=== PATIENT | male | born 1955 | race Caucasian/White ===

== ENCOUNTER 2024-12-28 13:22 | Observation (INO) ==
--- NOTE | 2024-12-28 14:39 | Emergency Department Note ---
Impression & Plan Ambulatory dysfunction, Weakness ED Provider Note CHIEF COMPLAINT: Right hip sciatic pain HISTORY OF PRESENTING ILLNESS: Patient is a 69-year-old male who presents to the emergency department today with Dr. Concepcion. His primary complaint is low back pain and right buttocks pain. He does have a history of sciatic pain and this is similar. Per Dr. Concepcion the patient has a history of Parkinson's, hypothyroidism, brain mass or cyst. He recently developed 3-4+ pitting edema in the bilateral lower extremities. The patient's son does live with him however he is out of town on a mission trip and the patient has been unable to ambulate and care for himself. The patient is incontinent of urine and that is his typical baseline. The patient's primary language is Syrian. He denies any injury or trauma. Talking to Dr. Concepcion He denies chest pain, sob, breathing difficulties, abdominal pain, headache, fevers/chills, blood in stool or urine, any recent illness, or any recent travel. REVIEW OF SYSTEMS: See HPI for pertinent positives and pertinent negatives. ALLERGIES: Sulfa MEDICATIONS: See below PAST MEDICAL HISTORY: See below PHYSICAL EXAM: VITALS: Vitals are noted on the nurse's note and reviewed by myself. GENERAL: Non toxic, in no acute distress, non-diaphoretic. SKIN: Capillary refill <2 sec. EYES: PERRLA. EOMI. Conjunctivae without injection, sclerae without icterus. NOSE: Patent without discharge. MOUTH: Mucous membranes moist. Uvula midline. Airway patent. NECK: Supple without nuchal rigidity. HEART: Regular rate and rhythm without murmurs gallops or rubs. LUNGS: Clear to auscultation bilaterally without wheezes, rales or rhonchi. No retractions or accessory muscle use. ABDOMEN: Positive bowel sounds x 4. Normal tympanic percussion. Soft, nontender to palpation. No masses or hepatosplenomegaly. Addison sign negative. No CVA tenderness. No guarding, rigidity, or rebound tenderness. No focal RLQ or LLQ tenderness. MUSCULOSKELETAL: +3 pitting edema to the BLE NEURO: Patient was alert and oriented. No focal neurological deficits. DIFFERENTIAL DIAGNOSIS: Differential diagnosis includes cauda equina syndrome, cord compression, disc herniation, muscle spasm, lumbar strain, epidural abscess, malignancy, transverse myelitis, urinary tract infection, colitis, diverticulitis, kidney stone, among others. ED COURSE AND MEDICAL DECISION MAKING: HISTORY FROM INDEPENDENT HISTORIAN: History was provided by the patient and and Dr. Concepcion. I examined the patient for complaints of lower back pain with pain in the right buttocks. A physical exam and history were performed. Nursing notes, EMR, and medication list were personally reviewed. EKG: EKG was interpreted by myself as sinus bradycardia. INTERPRETATION OF LABS: An IV lock was placed and labs were drawn. I interpreted the labs with full lab results as below in the lab section of this note. Laboratory results pertinent to the emergent complaint are discussed in the MDM section below. The patient was advised to follow up with their PCP and/or specialist(s) for further outpatient monitoring and management of any abnormal results. There was no leukocytosis, anemia, thrombocytopenia. Electrolytes were normal and kidney function was also normal. The urinalysis was negative for leukocytes, nitrates, bacteria. INTERPRETATION OF IMAGING: Imaging studies were interpreted by myself and read by radiology as per the imaging section of this note. The patient was advised to follow up with their PCP and/or specialist(s) for further outpatient management of any non-emergent abnormal findings. The lumbar spine x-ray showed no acute abnormality. CHRONIC MEDICAL/SOCIAL CONDITIONS AFFECTING CARE: Unable to speak Hebrew, unable to care for self with history of Parkinsons. ESCALATION OF CARE CONSIDERED: I considered admission on this patient due to the weakness and ambulatory dysfunction. CONSULTATIONS: I had a meaningful discussion about this patient with Dr. Navarro who agrees with my assessment and the treatment plan. I also consulted with case management due to the patient not being able to go home to a safe environment and care for himself. We then consulted the hospitalist for admission. I spoke with Ritesh Quesada PA-C who accepts the patient for admission. SUMMARY: I evaluated the patient in the emergency department for lower lumbar pain. I spoke with Dr. Hussein who brought the patient to the emergency department with concerns of an on safe living environment without his son being home to care for him. The patient is unable to walk and care for himself. There was no leukocytosis, anemia, thrombocytopenia. Electrolytes were normal and kidney function was also normal. The urinalysis was negative for leukocytes, nitrates, bacteria. The lumbar spine x-ray showed no acute abnormality. I spoke with Ritesh Quesada PA-C who accepts the patient for admission to the hospital. The patient is to have close outpatient follow-up with a recheck of their symptoms. To return to the ER sooner for any significantly changing or worsening symptoms. The patient was educated on the treatment plan and the discharge instructions. The patient was discharged home in stable condition and verbalized understanding of all discharge instructions and treatment plan. DIAGNOSIS: Weakness, ambulatory dysfunction, Parkinson's disease TREATMENT PLAN/DISCHARGE INSTRUCTIONS: Admission to the hospitalist services. Attending Attestation: I Mino Navarro MD I have reviewed the advanced practitioner's documentation and agree with the plan of care. I accept the responsibility for the associated risk of managing the patient. I performed a substantive portion of the visit including involvement in all aspects of medical decision making. Past Med/Surg History Problem List (Updated 12/28/24 @ 22:55 by KEV De Los Santos) Weakness (Acute) Lower back pain Bilateral lower extremity edema Ambulatory dysfunction (Acute) Medical History Urinary incontinence Hypothyroidism Parkinson's disease Surgical History History of cholecystectomy Family History Other Family history non-contributory Social History Smoking Status: Former smoker Smoking End Date: "> 4 years ago"; Hx Alcohol Use: No Hx Substance Use: No Preferred Language: Syrian Communication Ability: Effective Communication Tools: IPad Personal Insurance Advisor Required: Yes and Voice Beliefs That Will Affect Care: None Current Living Situation: Family and Other Current Living Situation Comment: Lives with his son but is currently living alone d/t being away for work Other Information That Helps Us Care for You: No Feels Safe at Home: Yes Safety Concerns: Feels Safe At This Time Assistive Devices: Walker Assistive Devices Comment: states he uses a walker but hasn't used it recently d/t it being broken Allergies Allergies Allergy/AdvReac Type Severity Reaction Status Date / Time Sulfa (Sulfonamide Allergy Unknown CAN'T Verified 12/28/24 17:04 Antibiotics) REMEMBER Home Meds Home Medications Medication Instructions Recorded Confirmed No Known Home Medications 12/28/24 12/28/24 Results & Data (ED) Vital Signs Vital Signs - 24 hr 12/28/24 15:00 12/28/24 16:00 12/28/24 16:15 Pulse Rate 77 Pulse Rate [Apical] 70 60 Pulse Rhythm [Apical] Regular Regular Pulse Strength [Apical] Normal Normal Respiratory Rate 18 16 Respiratory Effort / Characteristics Non-Labored Spontaneous Non-Labored Spontaneous Respiratory Depth Normal Normal Respiratory Pattern Regular Regular Blood Pressure [Left Arm] 163/94 H 135/83 Blood Pressure Mean [Left Arm] 117 100 Blood Pressure Position [Left Arm] Semi-fowlers Semi-fowlers Pulse Oximetry 94 100 Oxygen Delivery Method Room Air Room Air 12/28/24 18:16 Pulse Rate Pulse Rate [Apical] 59 L Pulse Rhythm [Apical] Regular Pulse Strength [Apical] Normal Respiratory Rate 18 Respiratory Effort / Characteristics Non-Labored Spontaneous Respiratory Depth Normal Respiratory Pattern Regular Blood Pressure [Left Arm] 150/89 H Blood Pressure Mean [Left Arm] 109 Blood Pressure Position [Left Arm] Semi-fowlers Pulse Oximetry 98 Oxygen Delivery Method Room Air Laboratory Data 12/29/24 06:36 12/29/24 06:36 Lab Results 12/28/24 12/28/24 Range/Units 14:49 16:25 WBC 6.91 (4.8-10.8) K/ul RBC 4.42 L (4.70-6.10) M/uL Hgb 13.2 L (14.0-18.0) g/dl Hct 38.9 L (42.0-52.0) % MCV 88.0 (80.0-100.0) fL MCH 29.9 (25.0-34.0) pg MCHC 33.9 (32.0-36.0) g/dL RDW Std Deviation 39.8 (36.4-46.3) fL RDW Coeff of Bernabe 12.5 (11.5-14.5) % Plt Count 177 (130-400) K/uL MPV 10.4 (9.4-12.4) fL Immature Gran % (Auto) 0.4 % Neut % (Auto) 74.3 % Lymph % (Auto) 16.1 % Yancey % (Auto) 7.8 % Eos % (Auto) 1.0 % Baso % (Auto) 0.4 % Neut # (Auto) 5.13 (1.40-6.50) K/uL Lymph # (Auto) 1.11 L (1.20-3.40) K/uL Yancey # (Auto) 0.54 (0.11-0.59) K/uL Eos # (Auto) 0.07 (0.00-0.50) K/uL Baso # (Auto) 0.03 (0.00-0.20) K/uL Immature Gran # (Auto) 0.03 (0.01-0.20) K/uL Sodium 137 (136-145) mmol/L Potassium 3.9 (3.5-5.1) mmol/L Chloride 102 (98-107) mmol/L Carbon Dioxide 29 (21-32) mmol/L Anion Gap 6 (3-11) BUN 18 (6-23) mg/dl Creatinine 0.65 (0.6-1.4) mg/dl Est Cr Clr Drug Dosing Not Reportable eGFR 100.74 BUN/Creatinine Ratio 27.7 H (10-20) Glucose 78 (70-99(Fasting)) mg/dl Calcium 9.6 (8.6-10.3) mg/dl Total Bilirubin 1.0 (0.2-1.0) mg/dl AST 14 (13-39) U/L ALT 15 (7-52) U/L Alkaline Phosphatase 108 H (34-104) U/L Troponin I High Sens 3.0 (0-20) pg/ml Total Protein 7.2 (6.0-8.3) gm/dl Albumin 4.9 (3.4-5.0) gm/dl Globulin 2.3 L (2.5-4.0) gm/dl Albumin/Globulin Ratio 2.1 H (0.9-2) Urine Color Yellow Urine Appearance Clear (Clear) Urine pH 7.0 (4.5-7.5) Ur Specific Clayton 1.006 (1.000-1.030) Urine Protein Negative (Negative) Urine Glucose (UA) Negative (Negative) Urine Ketones Negative (Negative) Urine Blood Negative (Negative) Urine Nitrite Negative (Negative) Urine Bilirubin Negative (Negative) Urine Urobilinogen Negative (Negative) Ur Leukocyte Esterase Negative (Negative) Urine Comment Administered Medications Carbidopa/Levodopa (Carbidopa/Levodopa 25/100mg Tab) 1 tab PO TID [facility] Stop: 01/27/25 20:59 Last Admin: 12/29/24 08:46 Dose: 1 tab Documented By: Admin: 12/28/24 21:34 Dose: 1 tab Documented By: ASHISH Enoxaparin Sodium (Enoxaparin Inj 40 Mg/0.4 Ml Syr) 40 mg SQ Q24H [facility] Stop: 01/27/25 21:29 Last Admin: 12/28/24 22:29 Dose: 40 mg Documented By: TRACY Levothyroxine Sodium (Levothyroxine Sodium 100 Mcg Tablet) 100 mcg PO DAILYBB [facility] Stop: 01/28/25 06:29 Last Admin: 12/29/24 06:00 Dose: 100 mcg Documented By: TRACY Miscellaneous (Remove Lidoderm Patch) 1 each N/A DAILY@2100 [facility] Stop: 01/27/25 20:59 Last Admin: 12/28/24 22:14 Dose: 1 each Documented By: TRACY Tramadol HCl (Tramadol Hcl 50 Mg Tablet) 50 mg PO BID PRN PRN Reason: Pain 8-10 Stop: 01/27/25 20:32 Last Admin: 12/29/24 08:46 Dose: 50 mg Documented By: SHANTELL Discontinued Medications Acetaminophen (Acetaminophen 325 Mg Tab) 650 mg PO NOW STA Stop: 12/28/24 18:33 Last Admin: 12/28/24 18:43 Dose: 650 mg Documented By: Ioversol (Optiray 320 100ml) 90 ml IV ONCE ONE Stop: 12/28/24 19:20 Last Admin: 12/28/24 19:19 Dose: 90 ml Documented By: PJ Lidocaine (Lidocaine 5% 1 Patch) 1 patch TD NOW STA Stop: 12/28/24 18:33 Last Admin: 12/28/24 18:43 Dose: 1 patch Documented By: Imaging Data Radiologist's Impression: Lumbar Spine X-Ray 12/28/24 14:18 INDICATION: Back pain. TECHNIQUE: 3 views of the lumbar spine. COMPARISON: No relevant priors. FINDINGS: No acute fracture or dislocation. No lytic or blastic bony lesions seen. Mild multilevel disc space narrowing and facet arthropathy most pronounced at lower lumbar levels. Soft tissues appear unremarkable. IMPRESSION: No acute osseous abnormality evident. Mild multilevel disc space narrowing and facet arthropathy most pronounced at lower lumbar levels. Electronically signed by Josué Schwartz 12-28-2024 4:43 PM Chest X-Ray 12/28/24 18:09 EXAM: Portable AP chest radiograph TECHNIQUE: AP portable radiograph of the chest was obtained. INDICATION: Shortness of breath Comparison: None FINDINGS: LINES and TUBES: None CARDIOVASCULAR: Cardiac silhouette is enlarged in size. LUNGS/PLEURA: Mild pulmonary vascular congestion. No focal consolidation identified. No significant pleural fluid. No discernible pneumothorax. OSSEOUS/OTHER: No displaced acute osseous process identified. IMPRESSION: Mild congestive changes of the cardiovascular system. Electronically signed by Jah Craven 12-28-2024 8:33 PM Abdomen/Pelvis CT 12/28/24 18:28 CT ABDOMEN and PELVIS WITH and WITHOUT INTRAVENOUS CONTRAST HISTORY: Abdominal pain TECHNIQUE: CT abdomen and pelvis without contrast. IV CONTRAST: 100 mL of Omnipaque 300 ENTERIC CONTRAST: None. COMPARISON: None FINDINGS: LOWER CHEST: Mild cardiac lodgment. Mild coronary calcifications. LIVER: No focal lesion identified. Hepatomegaly GALLBLADDER/BILIARY: Surgically absent gallbladder. No abnormal biliary dilatation. SPLEEN: Splenomegaly. PANCREAS: Unremarkable. ADRENALS: Unremarkable. KIDNEYS: Cortical cysts. No stones or hydronephrosis identified. PERITONEUM/RETROPERITONEUM. No lymphadenopathy by size criteria. No aortic aneurysm. GASTROINTESTINAL: No obstruction. Mild gastric wall thickening. Multiple loops of small bowel also demonstrate mild wall thickening REPRODUCTIVE: Enlarged prostate impinging upon the urinary bladder outlet. URINARY BLADDER: Mildly distended with mild wall thickening. ABDOMINAL WALL: No appreciable hernia defect. BONES: No acute findings. Multilevel degenerative changes of the lumbar spine with neuroforaminal stenoses at multiple levels. Grade 1 anterolisthesis of L5 on S1 with associated chronic pars defects. IMPRESSION: No nephrolithiasis or hydronephrosis detected. Suggestion of mild gastroenteritis. Advanced multilevel degenerative changes of the lumbar spine. Electronically signed by Jah Craven 12-28-2024 8:30 PM Discharge Plan Visit Data Chief Complaint: Back Injury/Pain Stated Complaint: BACK PAIN/TRAVELS INTO RT BUTTOX ED Provider: Mino Navarro ED Midlevel Provider: Minerva Eldridge Discharge Problem: Ambulatory dysfunction, Weakness Patient Disposition: Admitted As Inpatient Condition: Good Discharge Instructions Interventions: ED Discharge Assessment Last Done: 12/28/24 20:33
[2024-12-28 15:09] LABS: Basophils # (auto) 0.03 K/uL (0.00-0.20); Basophils % (auto) 0.4 %; Eosinophils # (auto) 0.07 K/uL (0.00-0.50); Hematocrit (blood only) 38.9 % (42.0-52.0); Hemoglobin 13.2 g/dl (14.0-18.0); Immature Granulocytes # (auto) 0.03 K/uL (0.01-0.20); Immature Granulocytes % (auto) 0.4 %; Lymphocytes # (auto) 1.11 K/uL (1.20-3.40); Lymphocytes % (auto) 16.1 %; Mean Corpuscular Hemoglobin 29.9 pg (25.0-34.0); Mean Corpuscular Hgb Conc 33.9 g/dL (32.0-36.0); Mean Platelet Volume 10.4 fL (9.4-12.4); Monocytes # (auto) 0.54 K/uL (0.11-0.59); Monocytes % (auto) 7.8 %; Neutrophils # (auto) 5.13 K/uL (1.40-6.50); Neutrophils % (auto) 74.3 %; Platelet Count 177 K/uL (130-400); RDW Coefficient of Variation 12.5 % (11.5-14.5); RDW Standard Deviation 39.8 fL (36.4-46.3); Red Blood Count 4.42 M/uL (4.70-6.10); White Blood Count 6.91 K/ul (4.8-10.8)
[2024-12-28 15:23] LABS: Alanine Aminotransferase 15 U/L (7-52); Albumin Globulin Ratio 2.1 (0.9-2); Albumin Level 4.9 gm/dl (3.4-5.0); Alkaline Phosphatase 108 U/L (34-104); Anion Gap 6 (3-11); Aspartate Aminotransferase 14 U/L (13-39); BUN Creatinine Ratio 27.7 (10-20); Blood Urea Nitrogen 18 mg/dl (6-23); Calcium 9.6 mg/dl (8.6-10.3); Carbon Dioxide 29 mmol/L (21-32); Chloride 102 mmol/L (98-107); Globulin 2.3 gm/dl (2.5-4.0); Glucose 78 mg/dl (70-99(Fasting)); Potassium 3.9 mmol/L (3.5-5.1); Sodium 137 mmol/L (136-145); Total Protein 7.2 gm/dl (6.0-8.3)
--- NOTE | 2024-12-28 15:53 | Electrocardiogram Report ---
Test Reason : Blood Pressure : */* mmHG Vent. Rate : 59 BPM Atrial Rate : 59 BPM P-R Int : 164 ms QRS Dur : 88 ms QT Int : 432 ms P-R-T Axes : 44 -9 36 degrees QTcB Int : 427 ms Sinus bradycardia Otherwise normal ECG No previous ECGs available Confirmed by Lucas Ching ([id number]) on 12/28/2024 3:52:39 PM Referred By: REFERRED SELF Confirmed By: Lucas Ching
[2024-12-28 16:39] LABS: Appearance Urine Clear (Clear); Bilirubin Urine Negative (Negative); Blood Urine Negative (Negative); Color Urine Yellow; Glucose Urine UA Negative (Negative); Ketones Urine Negative (Negative); Leukocyte Esterase Urine Negative (Negative); Nitrite Urine Negative (Negative); Protein Urine Negative (Negative); Specific Gravity Urine 1.006 (1.000-1.030); Urobilinogen Urine Negative (Negative)
--- NOTE | 2024-12-28 16:43 | XRay Report ---
INDICATION: Back pain. TECHNIQUE: 3 views of the lumbar spine. COMPARISON: No relevant priors. FINDINGS: No acute fracture or dislocation. No lytic or blastic bony lesions seen. Mild multilevel disc space narrowing and facet arthropathy most pronounced at lower lumbar levels. Soft tissues appear unremarkable. IMPRESSION: No acute osseous abnormality evident. Mild multilevel disc space narrowing and facet arthropathy most pronounced at lower lumbar levels. Electronically signed by Josué Schwartz 12-28-2024 4:43 PM
--- NOTE | 2024-12-28 17:18 | History & Physical Report ---
Date of Service December 28, 2024 Assessment & Plan (1) Ambulatory dysfunction: (2) Bilateral lower extremity edema: (3) Parkinson's disease: (4) Hypothyroidism: (5) Urinary incontinence: (6) Lower back pain: Plan This patient is a 69-year-old Venezuelan-speaking gentleman who presented on 12/28 for intractable lower back pain leading to ambulatory dysfunction. Patient came in at the [facility] (Dr. Concepcion). #Ambulatory dysfunction | lower right back/flank pain No fever at home; no leukocytosis Lumbar spine x-ray no acute osseous abnormality; mild multilevel disc space narrowing Leading DDx includes right-sided sciatica, arthritis, spondylolisthesis (among other etiologies) PT/OT evaluations appreciated Fall precautions Chek CT Abd/pel and consider MRI lumbar spine # Increased urinary frequency | urinary incontinence Urinary incontinence at baseline, with an acute worsening over 3 to 4 days UA negative for infection; no proteinuria A/P CT with and without contrast ordered to rule out kidney stone, lymphedema, occult fx, mass to explain new onset RLE edema, etc. Lidocaine patch application daily Acetaminophen as needed for pain Tramadol as needed for severe breakthrough pain #B/L LE edema LE edema Patient denies prior history of heart failure, UA without protein Echocardiogram ordered, pending CXR ordered, pending BNP ordered, pending Strict I&O monitoring Daily weights Heart healthy, low-sodium diet for now Lasix pending echocardiogram #Parkinson's Continue Sinemet BID #Hypothyroidism Continue levothyroxine Check TSH Disposition: Obs - Admit to Med/Tele VTE PPx: Lovenox 40 mg SQ q24h History of Present Illness Chief Complaint: Back injury/pain Primary Care Provider: NO PCP Mr. Jermain Ernst is a Venezuelan-speaking 69-year-old gentleman with PMH of Parkinson's, hypothyroidism, and brain mass. He presented on 12/28 for ambulatory dysfunction secondary to lower back pain. Patient believes it is secondary to sciatica. Patient reports that the pain is a 7/10, and is mainly "on top of the coccyx" as well as the right lower back wrapping around the flank. He describes the pain as intense, stabbing. No prior history of kidney stones. He has been taking ibuprofen 600 mg daily, which does help. No fever at home. While patient does have urinary continence at baseline, patient reports that there has been an acute worsening of urinary continence over the past 3 to 4 days. While he denies saddle anesthesia, he reports it feels like a "belt" is around his right lower abdominal quadrant. He also reports increased urinary frequency as well as suprapubic tenderness. Patient does report that he has had difficulty with his left leg in the past, but reports that the pain is mainly shooting down his right leg whenever he takes steps. Patient lives by himself. His son is around, however he is currently traveling for work. Patient's daughter is also out of the state for work. Patient has been had trouble caring for himself at home. He does report he had a recent fall 2 weeks ago. He does not ambulate with any assist devices at home. He denies any recent injuries or trauma to the abdomen, pelvis, or back. While his left leg has been swollen for the past year, his right leg began swollen over the past 2 weeks. No recent change in diet. No increase salt intake. No prior history of CHF. Patient took his regular morning medicines today, which include levothyroxine and Sinemet. Patient denies smoking tobacco use, recent alcohol use. Patient's vitals are stable at time of admission. ED course: ROS: Patient endorses lightheadedness on feet, lower abdominal pain, right flank pain, increased urinary frequency, intermittent blood in stool, LE edema, left leg numbness/tingling, and urinary incontinence (at baseline, but acute worsening x 3-4 days). Patient denies fever, chills, night-sweats, ALMAGUER, chest pain, SOB, abdominal pain, nausea, vomiting, saddle anesthesia, burning with urination, blood in urine, and melena. PMHx provided by Dr. Concepcion (from [facility]): New patient at [facility] on 12/28 Patient is Venezuelan-speaking, speaks a little Maori PMHx -Parkinson's, hypothyroidism, brain mass/cyst? 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 [place]; moved to [place] few years ago; moved to [place] 1 year ago; lives in son's home, but currently living there alone Acute onset of lower back pain with right-sided sciatica; prone to falls due to Parkinson's Allergies Allergy/AdvReac Type Severity Reaction Status Date / Time Sulfa (Sulfonamide Allergy Unknown CAN'T Verified 12/28/24 17:04 Antibiotics) REMEMBER Home Medications Medication Instructions Recorded Confirmed Type No Known Home Medications 12/28/24 12/28/24 History Past Med/Surg History Problem List (Updated 12/28/24 @ 19:21 by Narda Corona MD) Lower back pain Bilateral lower extremity edema Ambulatory dysfunction Medical History (Updated 12/28/24 @ 19:21 by Narda Corona MD) Urinary incontinence Hypothyroidism Parkinson's disease Surgical History (Updated 12/28/24 @ 19:21 by Narda Corona MD) History of cholecystectomy Family History (Updated 12/28/24 @ 19:22 by Narda Corona MD) Other Family history non-contributory Social History Smoking Status: Never smoker Preferred Language: Venezuelan Communication Tools: IPad Feels Safe at Home: Yes Review of Systems Review of Systems: See HPI above Physical Exam Physical Exam: General: no acute distress; pleasant affect; non-toxic appearing; well- nourished; cooperative; SpO2 100% on RA; communication through Venezuelan garibay slator on iPad HEENT: normocephalic, atraumatic; no scleral icterus; PERRLA; vision and hearing intact Neck: supple; no lymphadenopathy; trachea midline Skin: warm, dry without signs of tenting; no cyanosis; no rashes, bruising, lesions, or erythema noted CV: chest wall NTP; RRR; S1/S2 normal; no murmurs/rubs/gallops; pulses intact and symmetric at radial, DP, and PT Lungs: no acute respiratory distress; symmetrical chest wall expansion; clear breath sounds across all lung jay w/o adventitious sounds; no wheezing ABD: Soft, NTP; BS present; no rebound/guarding; no distention Back: Upper spine NTP; lower spine TTP bilaterally; negative straight leg lift bilaterally MSK: no tics or fasciculations; +3 edema noted in the LEs b/l, nonerythematous; patient demonstrates ability to wiggle toes; 3/5 strength when lifting legs from the bed bilaterally Neuro: A&Ox3; normal mood and affect; fluent speech; no focal deficits; patient reports sensation is intact and symmetric in lower extremity bilaterally Results & Data Results & Data Vital Signs (Past 12 Hours) Vital Signs Pulse Pulse Resp BP BP Pulse Ox O2 Del Method 12/28/24 16:15 60 16 135/83 100 Room Air 12/28/24 16:00 77 12/28/24 15:00 70 18 163/94 H 94 Room Air 12/28/24 13:33 58 L 16 158/87 H 100 Room Air Laboratory Results Abnormal lab results 12/28/24 Range/Units 14:49 RBC 4.42 L (4.70-6.10) M/uL Hgb 13.2 L (14.0-18.0) g/dl Hct 38.9 L (42.0-52.0) % Lymph # (Auto) 1.11 L (1.20-3.40) K/uL BUN/Creatinine Ratio 27.7 H (10-20) Alkaline Phosphatase 108 H (34-104) U/L Globulin 2.3 L (2.5-4.0) gm/dl Albumin/Globulin Ratio 2.1 H (0.9-2) Diagnostic Findings Lumbar Spine X-Ray 12/28/24 14:18 INDICATION: Back pain. TECHNIQUE: 3 views of the lumbar spine. COMPARISON: No relevant priors. FINDINGS: No acute fracture or dislocation. No lytic or blastic bony lesions seen. Mild multilevel disc space narrowing and facet arthropathy most pronounced at lower lumbar levels. Soft tissues appear unremarkable. IMPRESSION: No acute osseous abnormality evident. Mild multilevel disc space narrowing and facet arthropathy most pronounced at lower lumbar levels. Electronically signed by Josué Schwartz 12-28-2024 4:43 PM ECG Additional Comments: ECG revealed sinus bradycardia at 59 bpm; QTc 427 Code Status & VTE Plan Code Status Full code VTE Prophylaxis Plan VTE Prophylaxis will be ordered: Yes Supervising Physician Co-Signing Physician Notes PA Supervision Note: I personally saw and examined the patient. I verified all cool points and agree w jaimee Quesada with the following exceptions and/or additions: S-emissions testing technician video services utilized for this history. This patient is a 69-year-old male with history of hypothyroidism, Parkinson's disease, and brain mass, who presents with fairly acute onset of right sided sciatica radiating down the right lower extremity. He reports the pain is better when he pulls his knees up towards his chest in a position and better with bending over when walking. He has some numbness on the left leg, no weakness in either leg. He has chronic urinary incontinence. He also has had left lower extremity swelling that is significant for the last year and then developed right leg swelling in the last few weeks. He has never had a workup for this in the past. O- Vitals reviewed Gen: AAOx3, NAD HEENT: Anicteric sclerae, EOMI CV: RRR no mgr nl S1S2 Pulm: CTAB no wcr Abd: +BS soft NT ND no masses or hernias Ext: 2+ pitting edema left leg and 1+ pitting edema right leg Skin: Dry skin of the legs, onychomycosis of toenails Neuro: Full strength throughout all extremities, decreased sensation to light touch throughout the left lower extremity, negative straight leg raise bilaterally CBC, BMP, LFTs reviewed Lumbar spine x-ray reviewed A/O-16-vml[age]-old male here with right lower back pain with radiculopathy, and left greater than right lower extremity edema Check CT abdomen/pelvis to rule out intra-abdominal mass causing lower extremity edema and take a closer look for kidney stone, lumbar spine. Consider MRI of the lumbar spine if not improving. Seems like lumbar stenosis given improvement with forward flexion of the lower back. For the lower extremity swelling, check venous Dopplers bilaterally, BNP, echo, troponin PT/OT consults placed PG Care Time/CCT Total # of Minutes Spent Total Time Spent with Patient: Total time spent is greater than 50% in coordination of care (as documented) at patient's floor/unit and/or counseling patient: C[place] [address] INT INP/OBS CARE 3/75MIN Patient Type Established Medical Decision Making High Complexity Diagnoses Ambulatory dysfunction R26.2 Bilateral lower extremity edema R60.0 Parkinson's disease G20.A1 Hypothyroidism E03.9 Urinary incontinence R32 Lower back pain M54.50
--- NOTE | 2024-12-28 20:30 | CT Scan Report ---
CT ABDOMEN and PELVIS WITH and WITHOUT INTRAVENOUS CONTRAST HISTORY: Abdominal pain TECHNIQUE: CT abdomen and pelvis without contrast. IV CONTRAST: 100 mL of Omnipaque 300 ENTERIC CONTRAST: None. COMPARISON: None FINDINGS: LOWER CHEST: Mild cardiac lodgment. Mild coronary calcifications. LIVER: No focal lesion identified. Hepatomegaly GALLBLADDER/BILIARY: Surgically absent gallbladder. No abnormal biliary dilatation. SPLEEN: Splenomegaly. PANCREAS: Unremarkable. ADRENALS: Unremarkable. KIDNEYS: Cortical cysts. No stones or hydronephrosis identified. PERITONEUM/RETROPERITONEUM. No lymphadenopathy by size criteria. No aortic aneurysm. GASTROINTESTINAL: No obstruction. Mild gastric wall thickening. Multiple loops of small bowel also demonstrate mild wall thickening REPRODUCTIVE: Enlarged prostate impinging upon the urinary bladder outlet. URINARY BLADDER: Mildly distended with mild wall thickening. ABDOMINAL WALL: No appreciable hernia defect. BONES: No acute findings. Multilevel degenerative changes of the lumbar spine with neuroforaminal stenoses at multiple levels. Grade 1 anterolisthesis of L5 on S1 with associated chronic pars defects. IMPRESSION: No nephrolithiasis or hydronephrosis detected. Suggestion of mild gastroenteritis. Advanced multilevel degenerative changes of the lumbar spine. Electronically signed by Jah Craven 12-28-2024 8:30 PM
--- NOTE | 2024-12-28 20:34 | XRay Report ---
EXAM: Portable AP chest radiograph TECHNIQUE: AP portable radiograph of the chest was obtained. INDICATION: Shortness of breath Comparison: None FINDINGS: LINES and TUBES: None CARDIOVASCULAR: Cardiac silhouette is enlarged in size. LUNGS/PLEURA: Mild pulmonary vascular congestion. No focal consolidation identified. No significant pleural fluid. No discernible pneumothorax. OSSEOUS/OTHER: No displaced acute osseous process identified. IMPRESSION: Mild congestive changes of the cardiovascular system. Electronically signed by Jah Craven 12-28-2024 8:33 PM
--- NOTE | 2024-12-29 02:52 | Ultrasound Report ---
EXAM: US venous doppler LE BI CLINICAL HISTORY: Swelling, R/o DVT. TECHNIQUE: Ultrasound examination of bilateral lower extremity veins was performed in real time and duplex. One or more of the following were performed: spectral analysis, resistive index, waveform analysis, and pulsed Doppler. COMPARISON: None. FINDINGS: Normal phasic, non-pulsatile, and spontaneous flow is noted in the bilateral visualized greater saphenous, common femoral, superficial femoral, popliteal and anterior, posterior tibial, and peroneal veins. Visualized veins of both lower extremities demonstrate normal compressibility. No sonographic evidence of acute deep vein thrombosis (DVT) is detected in the visualized veins of both lower extremities. Compression and Augmentation: All evaluated veins compress fully with applied transducer pressure. Augmentation of venous flow is noted with distal compression. Additional Findings: No evidence of intraluminal thrombus. Possible mild soft tissue edema in the bilateral lower limb Small cystic area seen in the right popliteal region as per image: 2400(11/36) and possible in left popliteal region as per image: 6400(2/36) A few small cystic areas are seen in the left lower limb as per image 7400(33/36). IMPRESSION: 1. No sonographic evidence of acute DVT was detected in visualized greater saphenous, bilateral common femoral, superficial femoral, popliteal, anterior and posterior tibial, and peroneal veins at the time of examination. 2. Possible mild soft tissue edema in the bilateral lower limbs. Clinical correlation is advised 3. Small cystic area seen in the right popliteal region as well as possibly in the left popliteal region; the possibility of a small collection/Xie's cyst cannot be excluded 4. Few small cystic areas are seen in the left lower limb as mentioned above, likely due to prominent superficial vessels/ or less likely due to edema. Disclaimer: DVT could be missed early in the disease when the clot burden is minimal. For patients with moderate and high pretest probability of DVT and negative ultrasound, the [employer] clinical guidelines recommend testing with a D-dimer assay or repeat ultrasound in 5-7 days. If symptoms worsen, the Society of Radiologists in Ultrasound recommends repeating the ultrasound even earlier. Electronically signed by Johan Kiser 12-29-2024 02:51 AM
[2024-12-29 07:09] LABS: Hematocrit (blood only) 34.2 % (42.0-52.0); Hemoglobin 11.9 g/dl (14.0-18.0); Mean Corpuscular Hemoglobin 30.2 pg (25.0-34.0); Mean Corpuscular Hgb Conc 34.8 g/dL (32.0-36.0); Mean Corpuscular Volume 86.8 fL (80.0-100.0); Mean Platelet Volume 10.5 fL (9.4-12.4); Platelet Count 160 K/uL (130-400); RDW Coefficient of Variation 12.2 % (11.5-14.5); RDW Standard Deviation 39.6 fL (36.4-46.3); Red Blood Count 3.94 M/uL (4.70-6.10); White Blood Count 4.46 K/ul (4.8-10.8)
[2024-12-29 07:25] LABS: BUN Creatinine Ratio 22.5 (10-20); Calcium 8.9 mg/dl (8.6-10.3); Creatinine Clr Calc Pharmacy 87.8 ml/min; Potassium 3.8 mmol/L (3.5-5.1)
[2024-12-29 07:40] LABS: Thyroid Stimulating Hormone 5.266 uIu/ml (0.300-4.500)
[2024-12-29 08:16] LABS: T4 Free Thyroxine 0.74 ng/dl (0.61-1.60)
--- NOTE | 2024-12-29 09:25 | XCELERA ---
[id number] \\[id number]\[id number]_PDF_[id number]
--- NOTE | 2024-12-29 18:38 | Hospitalist Progress Note ---
"Date of Service December 29, 2024 Assessment & Plan (1) Lumbar radiculopathy, acute: (2) (HFpEF) heart failure with preserved ejection fraction: (3) Lower back pain: (4) Hypothyroidism: Plan This patient is a 69-year-old [place]-speaking male w/ a h/o urinary incontinence, Parkinson's, hypothyroidism, who presented on 12/28 for intractable lower back pain radiating through right buttock and worsening le edema leading to ambulatory dysfunction. Patient came in at the behest of [facility] (Dr. Concepcion). #Ambulatory dysfunction/Lumbar radiculopathy-No fevers. Reports pain improves with leaning forward or curling into position in bed. No weaknss. Does have some sensory deficit to light touch down left eg but not right. Pain now improved with tylenol, heating pad, one dose tramadol although this made him hypotensive. Lumbar spine x-ray no acute osseous abnormality but shows multilevel disc space narrowing and facet arthropathy most pronounced at lower lumbar levels. CT ABd/pel with multilevel degenerative changes of the lumbar spine with neuroforaminal stenoses at multiple levels. Grade 1 anterolisthesis of L5 on S1 with associated chronic pars defects. Suspect pain and symptoms from lumbar spinal stenosis with HNP/radiculopathy. Improving with conservative measures PT/OT evaluations appreciated -Fall precautions -continue heating pad, tylenol prn -dc tramadol due to hypotension -will get walker for home use -f/u with PCP and consider outpt PT but has no insurance #Acute on chronic HFpEF/BLE edema UA without protein Echocardiogram CXR BNP Strict I&O monitoring,Daily weights, low-sodium diet Lasix #Increased urinary frequency | urinary incontinence-Urinary incontinence at baseline, with an acute worsening over 3 to 4 days [employer]. With prostamegaly on CT. Likely incomplete emptying. UA neg. -bladder scan as needed -consider adding on flomax but with hypotension from tramadol, hold off for now -f/u as outpt #Parkinson's-no acute issues Continue Sinemet BID #Hypothyroidism-TSH mildly elevated at 5.2 -Continue levothyroxine home dose -f/u as outpt DVT Proph-SQ Lovenox Dispo-continued stay, likely dc to home tomorrow with walker Admission and Anticipated Discharge Date Admission Date: December 28, 2024 Subjective Pt feeling much better. Had relief of right sided back pain with heating pad today. Did get one dose of tramadol but then BP dropped to 70s systolic while in chair. BP returned to normal after return to bed. Later was back in chair and BP normal. He denies lightheadedness. Leg swelling is improved. He reports he walked with therapy and was feeling the best he has in a while. He admits he needs to watch his sodium intake. Tele with SB, NSR, rates 50-60s Physical Exam Constitutional: WD/WN, vitals as above Respiratory: normal respiratory effort, lungs clear to auscultation Cardiovascular: Rate/Rhythm: regular rate and regular rhythm Heart Sounds: no murmur Extremities: + edema (1+ pitting edema L>R legs) Psychiatric: A+Ox3, euthymic affect Results & Data Results & Data Vital Signs (Past 12 Hours) Vital Signs Temp Pulse Pulse Resp BP BP Pulse Ox 12/29/24 16:33 51 L 12/29/24 15:13 36.8 C 46 L 18 134/76 97 12/29/24 11:36 36.4 C L 49 L 18 121/68 97 12/29/24 08:40 12/29/24 07:46 36.7 C 49 L 18 127/65 94 12/29/24 07:09 75 O2 Del Method 12/29/24 16:33 12/29/24 15:13 Room Air 12/29/24 11:36 Room Air 12/29/24 08:40 Room Air 12/29/24 07:46 Room Air 12/29/24 07:09 Laboratory Results CBC, BMP reviewed Diagnostic Findings ECHO reviewed PG Care Time/CCT Total # of Minutes Spent Total Time Spent with Patient: Total time spent is greater than 50% in coordination of care (as documented) at patient's floor/unit and/or counseling patient: Coding Level of Care Code 40951 SUB INP/OBS CARE 3/50MIN Diagnoses Lumbar radiculopathy, acute M54.16 (HFpEF) heart failure with preserved ejection fraction I50.30 Lower back pain M54.50 Hypothyroidism E03.9"
[2024-12-30 06:34] LABS: Basophils # (auto) 0.02 K/uL (0.00-0.20); Basophils % (auto) 0.5 %; Eosinophils # (auto) 0.12 K/uL (0.00-0.50); Eosinophils % (auto) 2.9 %; Hematocrit (blood only) 34.2 % (42.0-52.0); Hemoglobin 11.9 g/dl (14.0-18.0); Immature Granulocytes # (auto) 0.01 K/uL (0.01-0.20); Immature Granulocytes % (auto) 0.2 %; Lymphocytes # (auto) 1.27 K/uL (1.20-3.40); Lymphocytes % (auto) 30.6 %; Mean Corpuscular Hemoglobin 30.4 pg (25.0-34.0); Mean Corpuscular Hgb Conc 34.8 g/dL (32.0-36.0); Mean Corpuscular Volume 87.5 fL (80.0-100.0); Mean Platelet Volume 10.9 fL (9.4-12.4); Monocytes # (auto) 0.46 K/uL (0.11-0.59); Monocytes % (auto) 11.1 %; Neutrophils # (auto) 2.27 K/uL (1.40-6.50); Neutrophils % (auto) 54.7 %; Platelet Count 156 K/uL (130-400); RDW Coefficient of Variation 12.6 % (11.5-14.5); RDW Standard Deviation 40.1 fL (36.4-46.3); Red Blood Count 3.91 M/uL (4.70-6.10); White Blood Count 4.15 K/ul (4.8-10.8)
[2024-12-30 06:57] LABS: Calcium 9.2 mg/dl (8.6-10.3); Magnesium 2.2 mg/dl (1.7-2.4); Potassium 4.1 mmol/L (3.5-5.1)
[2024-12-30 07:26] LABS: Folate (Folic Acid),Ser orPlas 16.49 ng/ml (>5.38)
--- NOTE | 2024-12-30 15:46 | Discharge Summary ---
Discharge Summary Date of Service December 30, 2024 Principal Dx & Hospital Course #1 = Principal Diagnosis (1) Lumbar radiculopathy, acute: (2) (HFpEF) heart failure with preserved ejection fraction: (3) Hypothyroidism: (4) Orthostasis: Plan This patient is a 69-year-old [place]an-speaking male w/ a h/o urinary incontinence, Parkinson's, hypothyroidism, who presented on 12/28 for intractable lower back pain radiating through right buttock and worsening lower extremity edema leading to ambulatory dysfunction. Patient came in at the behest of [facility] (Dr. Concepcion). #Ambulatory dysfunction/Lumbar radiculopathy-No fevers. Reports pain improves with leaning forward or curling into position in bed. No weakness. Does have some sensory deficit to light touch down left leg but not right. Pain now improved with tylenol, heating pad, one dose tramadol. Lumbar spine x-ray no acute osseous abnormality but shows multilevel disc space narrowing and facet arthropathy most pronounced at lower lumbar levels. CT ABD/pel with multilevel degenerative changes of the lumbar spine with neuroforaminal stenoses at multiple levels. Grade 1 anterolisthesis of L5 on S1 with associated chronic pars defects. Suspect pain and symptoms from lumbar spinal stenosis with HNP/radiculopathy. Improving with conservative measures PT/OT evaluations appreciated -continue heating pad, tylenol prn on discharge - He was provided with a walker for home use -f/u with PCP and consider outpt PT but has no insurance - Recommend no heavy lifting #Acute on chronic HFpEF/BLE edema -UA without protein, echocardiogram with preserved EF and no significant valvular abnormalities. He has had sodium indiscretion in his diet and suspect this is leading to peripheral edema. CT abdomen/pelvis without pelvic mass or vascular issues. BNP elevated at 409. Chest x-ray negative. Blood pressures are actually on the low normal side and he has issues with orthostasis likely from carbidopa/levodopa and Parkinson's. - Started Lasix 20 mg p.o. daily but had worsening of his chronic orthostasis - Discharged home on Lasix 10 mg p.o. daily - Recommended low-sodium diet, fluid restriction 1800 mL/day, daily weights #Orthostatic hypotension-he reports chronic lightheadedness with sitting up or standing up. This could be from carbidopa/levodopa and/or Parkinson's disease. The Lasix might make this slightly worse but put him on a very low dose of Lasix. 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 With prostamegaly on CT. Likely incomplete emptying. UA neg. -bladder scan as needed -consider adding on flomax but with hypotension and orthostasis, may make this worse -f/u as outpt #Parkinson's-no acute issues Continue Sinemet 3 times daily #Hypothyroidism-TSH mildly elevated at 5.2 -Continue levothyroxine home dose -f/u as outpt DVT Proph-SQ Lovenox Dispo-discharge to home with walker Notes For Next Care Provider Medication Changes From Visit Added Lasix 10 mg p.o. daily Added acetaminophen 650 Mg p.o. every 6 hours as needed pain Admission HPI Per Admitting Provider Mr. Jermain Ernst is a [place]an-speaking 69-year-old gentleman with PMH of Parkinson's, hypothyroidism, and brain mass. He presented on 12/28 for ambulatory dysfunction secondary to lower back pain. Patient believes it is secondary to sciatica. Patient reports that the pain is a 7/10, and is mainly "on top of the coccyx" as well as the right lower back wrapping around the flank. He describes the pain as intense, stabbing. No prior history of kidney stones. He has been taking ibuprofen 600 mg daily, which does help. No fever at home. While patient does have urinary continence at baseline, patient reports that there has been an acute worsening of urinary continence over the past 3 to 4 days. While he denies saddle anesthesia, he reports it feels like a "belt" is around his right lower abdominal quadrant. He also reports increased urinary frequency as well as suprapubic tenderness. Patient does report that he has had difficulty with his left leg in the past, but reports that the pain is mainly shooting down his right leg whenever he takes steps. Patient lives by himself. His son is around, however he is currently traveling for work. Patient's daughter is also out of the state for work. Patient has been had trouble caring for himself at home. He does report he had a recent fall 2 weeks ago. He does not ambulate with any assist devices at home. He denies any recent injuries or trauma to the abdomen, pelvis, or back. While his left leg has been swollen for the past year, his right leg began swollen over the past 2 weeks. No recent change in diet. No increase salt intake. No prior history of CHF. Patient took his regular morning medicines today, which include levothyroxine and Sinemet. Patient denies smoking tobacco use, recent alcohol use. Patient's vitals are stable at time of admission. ED course: ROS: Patient endorses lightheadedness on feet, lower abdominal pain, right flank pain, increased urinary frequency, intermittent blood in stool, LE edema, left leg numbness/tingling, and urinary incontinence (at baseline, but acute worsening x 3-4 days). Patient denies fever, chills, night-sweats, ALMAGUER, chest pain, SOB, abdominal pain, nausea, vomiting, saddle anesthesia, burning with urination, blood in urine, and melena. PMHx provided by Dr. Concepcion (from [facility]): New patient at [facility] on 12/28 Patient is [place]-speaking, speaks a little Pakistani PMHx -Parkinson's, hypothyroidism, brain mass/cyst? 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 [place]; moved to [place] few years ago; moved to [place] 1 year ago; lives in son's home, but currently living there alone Acute onset of lower back pain with right-sided sciatica; prone to falls due to Parkinson's Discharge Exam Constitutional WD/WN, vitals as above Respiratory normal respiratory effort, lungs clear to auscultation Cardiovascular Rate/Rhythm: regular rate and regular rhythm Heart Sounds: no murmur Extremities: + edema (1+ pitting edema L>R legs) Psychiatric A+Ox3, euthymic affect Discharge Plan Discharge Items Patient Disposition: Home - Self-Care Reason For Visit: AMBULATORY DYSFUNCTION, LBP, LE EDEMA Discharge Diagnosis: 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 Radiculopata lumbar con estenosis evans. Ortostasis Condition on Discharge: Good Activity: As commented below Lifting: No more than 5 pounds Lifting Comment: No levante ms de 5 libras Bathing: No limitations Exercise/Sports: Gradually increase as tolerated Exercise Comment: Aumente gradualmente simpson ejercicio segn lo tolere. Weightbearing: Full weightbearing Weightbearing Comment: Carga total del peso, use un andador para ayudarlo a caminar Non-emergency contact: Primary Care Provider Call non-emergency contact if: you have any medication questions, your symptoms worsen and your pain is not controlled Follow-up/Referrals: [facility] [Outside] (Seguimiento dentro de 1-2 semanas: llame para programar sudheer sharon.) Diet: Low Sodium (2gm) Fluids: 1800ml (7 cups) Addtl Attending Provider Instructions: Ingres con dolor lumbar que se irradia al glteo derecho, debido a sudheer artritis en la columna vertebral que presiona los nervios que salen de emiliano. [place] se denomina estenosis lumbar con radiculopata. Debe rosalind acetaminofn segn sea necesario para el dolor, usar sudheer almohadilla trmica y realizar estiramientos lumbares. La fisioterapia le sera beneficiosa si puede pagarla de simpson bolsillo. Consulte con simpson mdico de cabecera sobre esto. Simpson presin arterial baja al ponerse de pie. [place] podra deberse a simpson medicacin con carbidopa/levodopa. Use medias de compresin en las piernas para ayudar a que la katie fluya al corazn y as evitar que simpson presin arterial baje. Le trataron con diurticos para la hinchazn de piernas causada por insuficiencia cardaca congestiva. Es importante que no consuma cantidades excesivas de sodio. Por favor, tome media tableta de la pastilla de agua cada maana. Llame a simpson mdico de afuaecera si alguno de los siguientes sntomas o problemas aparece o empeora: Dificultad para respirar Se despierta por la noche con dificultad para respirar Dolor en el pecho Tos Hinchazn de tripp, pies o piernas Mayor fatiga o cansancio con simpson actividad habitual Palpitaciones (latidos cardacos rpidos y repentinos) PESO Psese todas las maanas despus de ir al berny. Use la misma cantidad de ropa. Anote simpson peso en sudheer tabla. Llame a simpson mdico de cabecera si aumenta ms de 1 o 1.4 kg en 1 o 2 davila. MEDICAMENTOS Utilice esta hoja de instrucciones de rina para las instrucciones sobre los medicamentos. [place] tyrell medicamentos a la hora indicada por simpson mdico. No omita ninguna dosis de tyrell medicamentos. Si olvida sudheer dosis de medicamento, tmela lo antes posible, arely NO DUPLIQUE LA DOSIS. Gloria la informacin de tyrell medicamentos al llegar a casa. Conozca todos los efectos secundarios de tyrell medicamentos. En ethel de luz, consulte a simpson farmacutico. Llame a la consulta de simpson mdico de cabecera si presenta algn efecto secundario. Asegrese de que todos tyrell mdicos sepan qu medicamentos y hierbas medicinales loida (incluyendo medicamentos para el resfriado, la gripe y las hierbas medicinales). Lleve lo siguiente a tyrell citas mdicas de seguimiento: Tabla de peso Lista de medicamentos Lista de preguntas No ben alcohol, cerveza ni vino en exceso. Pakistani: She was admitted with lower back pain radiating to her right buttock due to arthritis in her spine that is pressing on the nerves exiting from it. This is called lumbar stenosis with radiculopathy. She should take acetaminophen as needed for pain, use a heating pad, and perform lumbar stretches. Physical therapy would be beneficial if you can afford it out of pocket. Consult with your primary care physician about this. Her blood pressure drops when she stands. This could be due to her carbidopa/levodopa medication. She wears compression stockings on her legs to help blood flow to her heart and prevent her blood pressure from dropping. She was treated with diuretics for leg swelling caused by congestive heart failure. It is important that she not consume excessive amounts of sodium. Please take half a tablet of the water pill each morning. Call your primary care doctor if any of the following symptoms or problems appear or worsen: Shortness of breath Waking up at night with difficulty breathing Chest pain Cough Swelling in your hands, feet, or legs Increased fatigue or tiredness with your usual activities Palpitations (sudden rapid heartbeat) WEIGHT Weigh yourself every morning after using the bathroom. Wear the same amount of clothing. Record your weight on a chart. Call your primary care doctor if you gain more than 1 or 1.4 kg in 1 or 2 days. MEDICATIONS Use this discharge instruction sheet for medication instructions. Take your medications at the time prescribed by your doctor. Do not skip any doses of your medications. If you miss a dose of medication, take it as soon as possible, but DO NOT DOUBLE THE DOSE. Read the information on your medications when you get home. Know all the side effects of your medications. If you have any questions, ask your pharmacist. Call your primary care physician if you experience any side effects. Make sure all your doctors know what medications and herbal remedies you take (including cold, flu, and herbal remedies). Bring the following to your follow-up medical appointments: Weight chart Medication list List of questions Do not drink alcohol, beer, or wine to excess. Pending Studies at Discharge: No Stand-Alone Forms: My [facility] Medications and DC Order Prescriptions: New acetaminophen 325 mg Tablet 650 mg PO Q4H PRN (Reason: dolor) Qty: 30 0RF furosemide 20 mg Tablet 10 mg PO QAM Qty: 15 0RF Continued levothyroxine 100 mcg Tablet 100 mcg PO DAILY carbidopa-levodopa 25-100 mg Tablet 1 tab PO TID Discharge Orders: Discharge Order- CHF (Routine); Ordered 12/30/24 Ordered By: Narda Corona Admission Data Admit Date/Time: 12/28/24 18:35 Attending Provider: Narda Corona Admit Provider: Narda Corona Primary Care Provider: PCP,NO Hospital Stay Data Diagnostic Imagining Performed 12/28/24 18:28 CT abdomen pelvis wo/w con Stat 12/29/24 US venous doppler LE BI Stat Echocardiogram Pending Results Patient Have Any Pending Studies at Discharge: No Discharge Instructions Given to Patient (Per Discharging Provider) Ingres con dolor lumbar que se irradia al glteo derecho, debido a sudheer artritis en la columna vertebral que presiona los nervios que salen de emiliano. [place] se denomina estenosis lumbar con radiculopata. Debe rosalind acetaminofn segn sea necesario para el dolor, usar sudheer almohadilla trmica y realizar estiramientos lumbares. La fisioterapia le sera beneficiosa si puede pagarla de simpson bolsillo. Consulte con simpson mdico de cabecera sobre esto. [place] presin arterial baja al ponerse de pie. [place] podra deberse a simpson medicacin con carbidopa/levodopa. Use medias de compresin en las piernas para ayudar a que la katie fluya al corazn y as evitar que simpson presin arterial baje. Le trataron con diurticos para la hinchazn de piernas causada por insuficiencia cardaca congestiva. Es importante que no consuma cantidades excesivas de sodio. Por favor, tome media tableta de la pastilla de agua cada maana. Llame a simpson mdico de cabecera si alguno de los siguientes sntomas o problemas aparece o empeora: Dificultad para respirar Se despierta por la noche con dificultad para respirar Dolor en el pecho Tos Hinchazn de tripp, pies o piernas Mayor fatiga o cansancio con simpson actividad habitual Palpitaciones (latidos cardacos rpidos y repentinos) PESO Psese todas las maanas despus de ir al berny. Use la misma cantidad de ropa. Anote simpson peso en sudheer tabla. Llame a simpson mdico de cabecera si aumenta ms de 1 o 1.4 kg en 1 o 2 davila. MEDICAMENTOS Utilice esta hoja de instrucciones de rina para las instrucciones sobre los medicamentos. [place] tyrell medicamentos a la hora indicada por simpson mdico. No omita ninguna dosis de tyrell medicamentos. Si olvida sudheer dosis de medicamento, tmela lo antes posible, arely NO DUPLIQUE LA DOSIS. [place] la informacin de tyrell medicamentos al llegar a casa. Conozca todos los efectos secundarios de tyrell medicamentos. En ethel de luz, consulte a simpson farmacutico. Llame a la consulta de simpson mdico de cabecera si presenta algn efecto secundario. Asegrese de que todos tyrell mdicos sepan qu medicamentos y hierbas medicinales loida (incluyendo medicamentos para el resfriado, la gripe y las hierbas medicinales). Lleve lo siguiente a tyrell citas mdicas de seguimiento: Tabla de peso Lista de medicamentos Lista de preguntas No ben alcohol, cerveza ni vino en exceso. Pakistani: She was admitted with lower back pain radiating to her right buttock due to arthritis in her spine that is pressing on the nerves exiting from it. This is called lumbar stenosis with radiculopathy. She should take acetaminophen as needed for pain, use a heating pad, and perform lumbar stretches. Physical therapy would be beneficial if you can afford it out of pocket. Consult with your primary care physician about this. Her blood pressure drops when she stands. This could be due to her carbidopa/levodopa medication. She wears compression stockings on her legs to help blood flow to her heart and prevent her blood pressure from dropping. She was treated with diuretics for leg swelling caused by congestive heart failure. It is important that she not consume excessive amounts of sodium. Please take half a tablet of the water pill each morning. Call your primary care doctor if any of the following symptoms or problems appear or worsen: Shortness of breath Waking up at night with difficulty breathing Chest pain Cough Swelling in your hands, feet, or legs Increased fatigue or tiredness with your usual activities Palpitations (sudden rapid heartbeat) WEIGHT Weigh yourself every morning after using the bathroom. Wear the same amount of clothing. Record your weight on a chart. Call your primary care doctor if you gain more than 1 or 1.4 kg in 1 or 2 days. MEDICATIONS Use this discharge instruction sheet for medication instructions. Take your medications at the time prescribed by your doctor. Do not skip any doses of your medications. If you miss a dose of medication, take it as soon as possible, but DO NOT DOUBLE THE DOSE. Read the information on your medications when you get home. Know all the side effects of your medications. If you have any questions, ask your pharmacist. Call your primary care physician if you experience any side effects. Make sure all your doctors know what medications and herbal remedies you take (including cold, flu, and herbal remedies). Bring the following to your follow-up medical appointments: Weight chart Medication list List of questions Do not drink alcohol, beer, or wine to excess. Total Time Total Time Spent Total Time Spent (In Minutes): 35 minutes Total Time Includes: Examination of the Patient, Discharge Planning and Medication Reconciliation Coding Level of Care Code 03820 INP/OBS DISCH >30 MIN Diagnoses Lumbar radiculopathy, acute M54.16 (HFpEF) heart failure with preserved ejection fraction I50.30 Hypothyroidism E03.9 Orthostasis I95.1
[2024-12-30 16:42] VITALS: BP 102/60; PULSE 100; RESP 20; TEMP 98.1; O2SAT 92
== END 2024-12-30 18:33 | disposition home or self-care (01) ==
LOC: EDINP 13:22 → ED 13:22 → 2W 20:33